=== PATIENT | male | born 1995 | race American Indian/Alaskan Native ===

== ENCOUNTER 2017-04-29 17:34 | Emergency (ER) | payer OTHER ==
[~2017-04-29] VITALS: Ht 170.2 cm; Wt 68.0 kg
[2017-04-29] MEDS ORDERED: KETOROLAC TROME10 MG PO (18:04)
== END 2017-04-29 19:02 | disposition home or self-care (01) ==
LOC: ED 17:34
DX: S93.401A Sprain of unspecified ligament of right ankle, initial encounter (principal); W01.0XXA Fall on same level from slipping, tripping and stumbling without subsequent striking against object, initial encounter
CPT/HCPCS: 73610; 99283

== ENCOUNTER 2018-12-30 20:50 | Emergency (ER) | payer OTHER ==
[~2018-12-30] VITALS: Ht 170.2 cm; Wt 68.0 kg
[~2018-12-30 20:50] MED LIST: KETOROLAC TROME10 MG PO
== END 2018-12-31 12:06 | disposition home or self-care (01) ==
LOC: ED 20:50
DX: S01.81XA Laceration without foreign body of other part of head, initial encounter (principal); F32.9 Major depressive disorder, single episode, unspecified; X58.XXXA Exposure to other specified factors, initial encounter
CPT/HCPCS: 36415; 80053; 80176; 81001; 84443; 85025; 99283; G0480

== ENCOUNTER 2024-05-15 20:41 | Emergency (ER) | payer OTHER ==
[~2024-05-15] VITALS: Ht 170.2 cm; Wt 67.5 kg
[2024-05-16 00:05] VITALS: BP 124/56
== END 2024-05-16 00:16 | disposition home or self-care (01) ==
LOC: ED 20:41
DX: S42.491A Other displaced fracture of lower end of right humerus, initial encounter for closed fracture (principal); W19.XXXA Unspecified fall, initial encounter
CPT/HCPCS: 29105; 73080; 93971; 99284-25

== ENCOUNTER 2024-10-02 20:55 | Emergency (ER) | payer OTHER ==
[~2024-10-02] VITALS: Ht 170.2 cm; Wt 67.0 kg
[2024-10-02] MEDS ORDERED: diphenhydrAMINE HCL 50 MG/ML VIAL IV ONE (21:15)
[2024-10-02] MEDS ORDERED: FAMOTIDINE 20 MG/ 2 ML VIAL IV ONE (21:15)
[2024-10-02] MEDS ORDERED: DEXAMETHASONE SOD PHOS 10 MG/ML VIAL IV ONE (21:15)
[2024-10-02 21:26] LABS: EOSINOPHILS 2.9 % (0-6); HEMATOCRIT 47.7 % (35.0-50.0); HEMOGLOBIN 16.7 g/dL (12.0-18.0); LYMPHOCYTES 24.7 % (24-44); MCH 33.7 (27-36); MCHC 35.1 g/dl (30-36); MCV 96.2 fl (81-99); MONOCYTES 5.9 % (0-12); NEUTROPHILS 65.5 % (39-80); PLATELET COUNT 397 K/uL (140-440); RBC 4.96 M/ul (4.3-5.7); RDW 16.8 (10.5-15.0)
[2024-10-02] MEDS ORDERED: ZYRTEC10 MG PO (21:54)
[2024-10-02] MEDS ORDERED: EPIPEN 2-P0.3 MG/0.3 IM (21:58)
[2024-10-02 22:10] VITALS: BP 97/69
== END 2024-10-02 22:10 | disposition home or self-care (01) ==
LOC: ED 20:55
PROVIDERS: Family Medicine
DX: T78.40XA Allergy, unspecified, initial encounter (principal)
CPT/HCPCS: 36415; 85025; 96374; 96375; 99284-25; J1100; J1200